=== PATIENT | male | born 1960 | race Caucasian/White ===

== ENCOUNTER 2019-07-30 17:58 | Emergency (ER) | payer OTHER ==
[~2019-07-30] VITALS: Ht 188 cm; Wt 108.9 kg
[~2019-07-30 17:58] MED LIST: ARMOUR THYROID30 M1; CIPRO500 MG PO; DOXYCYCLINE 10100 MG PO; PENICILLIN VK500 MG PO; ULTRAM 50MG TAB50 MG PO
[2019-07-30] MEDS ORDERED: DICLOFENAC SODI75 MG PO (18:57)
[2019-07-30 19:14] VITALS: BP 108/77
== END 2019-07-30 19:14 | disposition home or self-care (01) ==
LOC: M.ERS 17:58
DX: M79.671 Pain in right foot (principal); Z88.4 Allergy status to anesthetic agent

== ENCOUNTER 2020-06-19 05:54 | Emergency (ER) | payer OTHER ==
[~2020-06-19] VITALS: Ht 190.5 cm; Wt 100.2 kg
[~2020-06-19 05:54] MED LIST changes: +DICLOFENAC SODI75 MG PO
[2020-06-19] MEDS ORDERED: ARMOUR THYROID15 M1 PO (06:03)
[2020-06-19 06:29] LABS: URINE BILIRUBIN NEGATIVE (Negative); URINE BLOOD NEGATIVE (Negative); URINE CLARITY CLEAR; URINE COLOR YELLOW; URINE GLUCOSE-RANDOM NEGATIVE (Negative); URINE KETONES NEGATIVE (Negative); URINE LEUKOCYTES-REFLEX NEGATIVE (Negative); URINE NITRITE-REFLEX NEGATIVE (Negative); URINE PROTEIN NEGATIVE (Negative); URINE SPECIFIC GRAVITY 1.025 (1.005-1.030); URINE UROBILINOGEN 0.2 E.U./dl (0.2-1.0)
[2020-06-19 06:35] LABS: MPV 9.3 fl. (7.2-11.1); NUCLEATED RBCS 0 /100WBC; WBC 6.7 thou/uL (4.0-11.0)
[2020-06-19 06:37] LABS: ABSOLUTE EOSINOPHILS 0.2 thou/uL (0.0-0.7); ABSOLUTE LYMPHOCYTES 1.7 thou/uL (0.8-5.3); ABSOLUTE MONOCYTES 0.8 thou/uL (0.0-1.2); ABSOLUTE NEUTROPHILS 4.1 thou/uL (1.6-8.1); BASOPHILS 0.5 %; EOSINOPHILS 2.4 %; HEMATOCRIT 44.8 % (42.0-52.0); HEMOGLOBIN 15.5 gm/dL (14.0-18.0); LYMPHOCYTES 24.7 %; MCH 31.7 pg (26.0-34.0); MCHC 34.5 g/dL (28.0-37.0); MONOCYTES 12.1 %; PLATELET COUNT* 198 thou/uL (150-400); POLYS 60.3 %; RBC 4.87 mil/uL (4.50-6.00); RDW-CV 13.9 % (10.5-14.5)
[2020-06-19 06:38] LABS: CALCIUM 8.4 mg/dL (8.5-10.1); CREATININE 0.8 mg/dL (0.6-1.3); POTASSIUM 3.9 mmol/L (3.5-5.1)
[2020-06-19] MEDS ORDERED: ALINIA 500 MG500 M1 PO (06:38)
[2020-06-19] MEDS ORDERED: FLAGYL500 M1 PO (06:38)
[2020-06-19 06:42] LABS: ALBUMIN 4.1 g/dL (3.4-5.0); MAGNESIUM 2.1 mg/dL (1.8-2.4); TOTAL BILIRUBIN 0.3 mg/dL (<0.1-1.0); TOTAL PROTEIN 6.8 g/dL (6.4-8.2)
[2020-06-19 07:55] VITALS: BP 114/72
[2020-06-19 08:43] LABS: ESR (SEDRATE) 1 mm/hr (0-20)
== END 2020-06-19 08:00 | disposition home or self-care (01) ==
LOC: M.ERS 05:54
PROVIDERS: Emergency Medicine
DX: R19.7 Diarrhea, unspecified (principal)